=== PATIENT | female | born 1970 ===

== ENCOUNTER 2025-02-26 14:17 | Emergency (ER) | payer MEDICAID ==
[~2025-02-26] VITALS: Ht 165.1 cm; Wt 59.0 kg
[2025-02-26 14:34] VITALS: BP 126/84; PULSE 71; RESP 18; TEMP 97; O2SAT 98
== END 2025-02-26 16:02 | disposition left against medical advice (07) ==
LOC: ER 14:18
DX: G47.9 Sleep disorder, unspecified (principal); Z76.0 Encounter for issue of repeat prescription; Z53.21 Procedure and treatment not carried out due to patient leaving prior to being seen by health care provider